=== PATIENT | male | born 1945 | race Caucasian/White ===

== ENCOUNTER 2019-08-23 00:01 | Emergency (ER) | payer OTHER, BC ==
[~2019-08-23] VITALS: Ht 177.8 cm; Wt 73.5 kg
[2019-08-23 00:15] VITALS: BP 129/60
--- NOTE | 2019-08-23 00:18 | NUR ---
TO LOBBY A/W BED AMBULATORY
[2019-08-23 00:38] LABS: BASOPHILS % (AUTO) 0.5 % (0.0-2.0); EOSINOPHILS # (AUTO) 0.1 K/uL (0-0.4); EOSINOPHILS % (AUTO) 1.1 % (0.0-4.0); HEMATOCRIT 40.9 % (36-52); HEMOGLOBIN 13.8 g/dL (12.0-18.0); LYMPHOCYTES # (AUTO) 0.7 K/uL (2.0-11.5); MEAN CORPUSCULAR HEMOGLOBIN 31 pg (27-31); MEAN CORPUSCULAR HGB CONC 34 g/dL (33-37); MONOCYTES # (AUTO) 0.6 K/uL (0.8-1.0); MONOCYTES % (AUTO) 7.4 % (1.7-9.3); NEUTROPHILS # (AUTO) 6.2 K/uL (1.8-7.7); NEUTROPHILS % (AUTO) 82.1 % (42.2-75.2); PLATELET COUNT (AUTO) 204 K/uL (140-450); RED BLOOD CELL COUNT(AUTO) 4.45 MIL/uL (4.20-6.10); RED CELL DISTRIBUTION WIDTH 13.7 % (11.6-13.7); WHITE BLOOD COUNT (AUTO) 7.5 K/uL (4.8-10.8)
--- NOTE | 2019-08-23 00:41 | NUR ---
PT TAKEN TO RAD FROM LOBBY
[2019-08-23 00:49] LABS: ANION GAP 14.6 (8-16); CARBON DIOXIDE 25.7 mmol/L (21-32); CHLORIDE 103 mmol/L (98-107); CREATININE 1.6 mg/dL (0.7-1.3); GLUCOSE 103 mg/dL (74-106); POTASSIUM 4.3 mmol/L (3.5-5.1); SODIUM SERUM 139 mmol/L (136-145); UREA NITROGEN, BLOOD 18 mg/dL (7-18)
[2019-08-23 00:51] LABS: LYMPHOCYTES % (AUTO) 8.9 % (20.5-51.1)
[2019-08-23 00:56] LABS: ALBUMIN 3.5 g/dL (3.4-5.0); ASPARTATE AMINOTRANSFERASE 18 U/L (15-37); TOTAL BILIRUBIN 1.2 mg/dL (0.0-1.0)
--- NOTE | 2019-08-23 01:22 | NUR ---
PT AMBULATED TO BED 4 WITH SPOUSE
--- NOTE | 2019-08-23 01:45 | NUR ---
74 YEAR OLD MALE COMPLAINS OF COUGH AND SOME TROUBLE BREATHING. BREATHING EVEN AND UNLABORED, WHEEZING ON LEFT LOBE. RR 18, SPO2 95%. PATIENT STATES HE HAS HAD SOME FATIGUE LATELY. PATIENT ALSO COMPLAINS OF RECTAL BLEEDING AND HIS LAST POOP WAS 2 DAYS AGO. PATIENT AOX4, SKIN WARM AND DRY. PATIENT DENIES CHEST PAIN. BED IN LOWEST POSITION, LOCKED, BED RAIL UPX1. PMH - DENIES ALLERGIES - NKA
[2019-08-23] MEDS ORDERED: ALBUTEROL SULFATE/IPRATROPIU 3 ML SOL IH ONE (01:50)
[2019-08-23 02:31] VITALS: BP 129/60
--- NOTE | 2019-08-23 02:32 | NUR ---
Patient discharged with v/s stable. Written and verbal after care instructions given and explained. Patient alert, oriented and verbalized understanding of instructions. Ambulatory with steady gait. All questions addressed prior to discharge. ID band removed. Patient advised to follow up with PMD. Rx of PROMETHAZINE, ALBUTEROL, AZITHROMYCIN given. Patient educated on indication of medication including possible reaction and side effects. Opportunity to ask questions provided and answered.
== END 2019-08-23 02:32 | disposition home or self-care (01) ==
LOC: MED 00:01
DX: J40 Bronchitis, not specified as acute or chronic (principal); N18.9 Chronic kidney disease, unspecified; R07.89 Other chest pain; R53.83 Other fatigue; M79.10 Myalgia, unspecified site; K59.00 Constipation, unspecified
CPT/HCPCS: 36415; 71045; 80053; 83880; 84484; 85025; 87804; 94640; 99284; J7620

== ENCOUNTER 2019-08-27 16:43 | Inpatient (IN) | payer OTHER, BC ==
[~2019-08-27] VITALS: Ht 177.8 cm; Wt 71.7 kg
--- NOTE | 2019-08-27 16:50 | NUR ---
PATIENT AMBULATED WITH STEADY GAIT TO BED 9.
[2019-08-27 16:53] VITALS: BP 128/71
[2019-08-27] MEDS ORDERED: NACL 0.9% 500 ML IV SCH (16:57)
--- NOTE | 2019-08-27 17:15 | NUR ---
PT TAKEN TO CT
--- NOTE | 2019-08-27 17:25 | NUR ---
74 Y/O MALE PRESENTS WITH EPIGASTRIC DISCOMFORT X1 DAY. PT FEELS PRESSURE IN EPIGASTRIC AREA CAUSING SOB. RESP EVEN AND UNLABORED. EXP WHEEZING HERD IN BILATERAL LUNG. BOWEL SOUNDS NORMOACTIVE. ABD SOFT/ NONTENDER. PT DENIES ANY CHEST PAIN. AAOX3. PT CAME TO ER EARLIER IN THE WEEK W A DX OF BRONCHITIS, HAS BEEN TAKING PROMETHAZINE. PT DENIES ANY BACK PAIN. PT DENIES ANY N/V/D, FEVER, CHILLS. NO PMH NKA
[2019-08-27 17:28] LABS: BASOPHILS % (AUTO) 0.2 % (0.0-2.0); EOSINOPHILS # (AUTO) 0.1 K/uL (0-0.4); EOSINOPHILS % (AUTO) 1.2 % (0.0-4.0); HEMATOCRIT 38.3 % (36-52); HEMOGLOBIN 12.9 g/dL (12.0-18.0); LYMPHOCYTES # (AUTO) 0.5 K/uL (2.0-11.5); LYMPHOCYTES % (AUTO) 6.6 % (20.5-51.1); MEAN CORPUSCULAR HEMOGLOBIN 31 pg (27-31); MEAN CORPUSCULAR HGB CONC 34 g/dL (33-37); MEAN CORPUSCULAR VOLUME 91.3 fL (80-94); MONOCYTES # (AUTO) 0.7 K/uL (0.8-1.0); MONOCYTES % (AUTO) 8.3 % (1.7-9.3); NEUTROPHILS # (AUTO) 6.7 K/uL (1.8-7.7); NEUTROPHILS % (AUTO) 83.7 % (42.2-75.2); PLATELET COUNT (AUTO) 272 K/uL (140-450); RED CELL DISTRIBUTION WIDTH 13.4 % (11.6-13.7)
[2019-08-27 17:32] LABS: APPEARANCE,URINE CLEAR (CLEAR); BILIRUBIN,URINE 1+ (NEGATIVE); BLOOD, URINE 3+ (NEGATIVE); COLOR,URINE YELLOW (YELLOW); LEUKOCYTE ESTERASE ,URINE NEGATIVE (NEGATIVE); NITRITE, URINE NEGATIVE (NEGATIVE); UGLUCOSE NEGATIVE (NEGATIVE)
[2019-08-27 17:45] LABS: PROTHROMBIN TIME 10.7 secs (10.8-13.4)
[2019-08-27 17:48] LABS: WBC,URINE 0-5 /HPF (0-5)
[2019-08-27 17:56] LABS: ALBUMIN 2.6 g/dL (3.4-5.0); ANION GAP 12.6 (8-16); ASPARTATE AMINOTRANSFERASE 30 U/L (15-37); CARBON DIOXIDE 26.8 mmol/L (21-32); CHLORIDE 98 mmol/L (98-107); CREATININE 1.6 mg/dL (0.6-1.3); GLUCOSE 165 mg/dL (74-106); POTASSIUM 3.4 mmol/L (3.5-5.1); SODIUM SERUM 134 mmol/L (136-145); TOTAL BILIRUBIN 0.7 mg/dL (0.0-1.0); UREA NITROGEN, BLOOD 14 mg/dL (7-18)
[2019-08-27] MEDS ORDERED: PIPERACILLIN/TAZOBACTAM 3.375 GM in DEXTROSE 5% 50 ML IV ONE (18:15)
[2019-08-27] MEDS ORDERED: PIPERACILLIN/TAZOBACTAM 3.375 GM VIAL IV ONE (18:25)
--- NOTE | 2019-08-27 19:00 | NUR ---
SP02 FLUCTUATING PT IS SLEEPING IN BED. RESP EVEN AND UNLABORED. PT IS EASILY AROUSABLE. ALL NEEDS MET AT THIS TIME
[2019-08-27] MEDS ORDERED: HYDROcodone/APAP 5/325 MG 1 TAB TAB PO PRN (19:15)
[2019-08-27] MEDS ORDERED: ACETAMINOPHEN 325 MG TAB PO PRN (19:15)
[2019-08-27] MEDS ORDERED: ONDANSETRON 4 MG/2 ML VIAL IM/IVP PRN (19:15)
[2019-08-27] MEDS ORDERED: ALBUTEROL SULFATE/IPRATROPIU 3 ML SOL IH PRN (19:15)
[2019-08-27] MEDS ORDERED: DOCUSATE SODIUM 100 MG GELCAP PO PRN (19:15)
[2019-08-27] MEDS ORDERED: AZIT250T3 PO (19:48)
[2019-08-27] MEDS ORDERED: PHE6.25L PO (19:48)
--- NOTE | 2019-08-27 19:55 | NUR ---
RECEIVED FROM ER PER SPENCER AWAKE AND ALERT. ABLE TO VERBALIZE WELL IN NAMIBIAN WITH A LITTLE MONGOLIAN. AND DAUGHTER WITH PT. DAUGHTER /BRANDEN /SPEAKS GOOD MONGOLIAN AND KNOWS FATHER WELL. IVF SITE TO RAC #22 . GOOD BLOOD RETURN NOTED. NO COMPLAINTS OF ANY DOLOR AT THIS TIME. CARE PLANS FOR THE NIGHT DISCUSSED WITH THEM AND CALL LIGHT WITH IN REACH. ORIENTED TO RESTROOM INSIDE ROOM . SKIN INTACT.
[2019-08-27 20:00] VITALS: BP 131/77
[2019-08-27 20:00] LABS: MAGNESIUM 1.8 mg/dL (1.8-2.4); PHOSPHORUS 2.4 mg/dL (2.5-4.9); THYROID STIMULATING HORMONE 1.79 uIU/mL (0.34-3.74)
[2019-08-27] MEDS ORDERED: AZITHROMYCIN 500 MG in DEXTROSE 5% 250 ML IV SCH (20:00)
[2019-08-27] MEDS ORDERED: POTASSIUM CHLORIDE 10 MEQ TABER PO SCH (20:00)
--- NOTE | 2019-08-27 20:02 | NUR ---
Patient will be admitted to care of [facility]. Admited to TELE. Will go to room 122A. Belongings list completed. Report to CHULA MCGOVERN.
[2019-08-27 20:06] LABS: BARBITURATE, URINE NEG. ng/ml (NEG <=200); BENZODIAZEPINE, URINE NEG. ng/mL (NEG <=200); CANNABINOID, URINE NEG. ng/mL (NEG <=50); COCAINE, URINE NEG. ng/mL (NEG <=300); OPIATE, URINE NEG. ng/mL (NEG <=2000); PHENCYCLIDINE SCREEN,URINE NEG. ng/mL (NEG <=25)
[2019-08-27] MEDS ORDERED: AZITHROMYCIN 500 MG INJ VIAL IV ONE (20:06)
[2019-08-27] MEDS: NACL 0.9% 1,000 ML IV SCH (20:11)
[2019-08-27] MEDS: ATORVASTATIN 20 MG TAB PO SCH (21:33)
[2019-08-27] MEDS: SODIUM PHOS / POTASSIUM PHOS 1 PKT PDR PO SCH (21:34)
[2019-08-27] MEDS: PANTOPRAZOLE 40 MG TABEC PO SCH (21:43)
--- NOTE | 2019-08-27 23:00 | NUR ---
FAMILY LEFT FOR HOM3E. CALL LIGHT WITH IN REACH. ENCOURAGED TO CALL FOR ANY HELP HE MAY NEED. NO SOB. NO DENIES PAIN AT THIS TIME. TELEMETRY MONITORING.
[2019-08-27] MEDS ORDERED: cefTRIAXone 1,000 MG VIAL ONE (23:31)
[2019-08-28] VITALS: BP 128/76
--- NOTE | 2019-08-28 02:10 | NUR ---
PT. NOTED ABLE TO SPEAK IN ANGUILLAN WELL. CALL LIGHT WITH IN REACH. ENCOURAGED TO CALL FOR ANY HELP HE MAY NEED. NO COMPLAINTS DONE AT THIS TIME. WAKES UP EASILY WHEN TOUCHED OR CALLED BY NAME. TELEMETRY MONITORING.
[2019-08-28 04:00] VITALS: BP 132/62
--- NOTE | 2019-08-28 07:11 | NUR ---
SLEEPING STILL. WAKES UP EASILY WHEN TOUCHED OR CALLED BY NAME. TELEMETRY MONITORING. NO COMPLAINTS OF ANY PAIN OR SOB THIS SHIFT.
[2019-08-28 07:12] LABS: BASOPHILS % (AUTO) 0.2 % (0.0-2.0); EOSINOPHILS # (AUTO) 0.2 K/uL (0-0.4); HEMATOCRIT 35.2 % (36-52); HEMOGLOBIN 11.9 g/dL (12.0-18.0); LYMPHOCYTES # (AUTO) 0.8 K/uL (2.0-11.5); LYMPHOCYTES % (AUTO) 9.7 % (20.5-51.1); MEAN CORPUSCULAR HEMOGLOBIN 31 pg (27-31); MEAN CORPUSCULAR HGB CONC 34 g/dL (33-37); MEAN CORPUSCULAR VOLUME 91.1 fL (80-94); MONOCYTES # (AUTO) 0.9 K/uL (0.8-1.0); MONOCYTES % (AUTO) 10.5 % (1.7-9.3); NEUTROPHILS # (AUTO) 6.5 K/uL (1.8-7.7); NEUTROPHILS % (AUTO) 77.6 % (42.2-75.2); PLATELET COUNT (AUTO) 258 K/uL (140-450); RED BLOOD CELL COUNT(AUTO) 3.86 MIL/uL (4.20-6.10); RED CELL DISTRIBUTION WIDTH 13.8 % (11.6-13.7); WHITE BLOOD COUNT (AUTO) 8.4 K/uL (4.8-10.8)
--- NOTE | 2019-08-28 07:34 | NUR ---
RECEIVED FROM SYSTEMS INTEGRATION ADVISOR RN FOR CONTINUITY OF CARE. PT IS AAOX4, ABLE TO VERBALIZE WELL IN HEBREW WITH A LITTLE SWEDISH SPOKEN. IVF SITE TO RAC #22 . GOOD BLOOD RETURN NOTED. NO COMPLAINTS OF ANY PAIN AT THIS TIME. SKIN IS INTACT. PT AMBULATORY WITH STANDBY ASSISTANCE. CARE PLAN DISCUSSED WITH PT AND PT VERBALIZED UNDERSTANDING. CALL LIGHT WITH IN REACH, BED IN LOW POSITION. WILL MONITOR PT CLOSELY.
[2019-08-28 07:47] LABS: MAGNESIUM 1.7 mg/dL (1.8-2.4)
[2019-08-28 07:48] LABS: ANION GAP 11.3 (8-16); CARBON DIOXIDE 26.8 mmol/L (21-32); CHLORIDE 103 mmol/L (98-107); GLUCOSE 103 mg/dL (74-106); POTASSIUM 4.1 mmol/L (3.5-5.1); SODIUM SERUM 137 mmol/L (136-145)
[2019-08-28 07:49] LABS: CREATININE 1.3 mg/dL (0.6-1.3); UREA NITROGEN, BLOOD 11 mg/dL (7-18)
[2019-08-28 08:00] VITALS: BP 118/48
[2019-08-28] MEDS: SODIUM PHOS / POTASSIUM PHOS 1 PKT PDR PO SCH ×2 (09:01→20:38)
[2019-08-28] MEDS: PANTOPRAZOLE 40 MG TABEC PO SCH (09:04)
[2019-08-28] MEDS: ASPIRIN 81 MG TAB.CHEW PO SCH (09:04)
[2019-08-28] MEDS: LACTOBACILLUS RHAMNOSUS GG 1 EACH CAP PO SCH (09:04)
[2019-08-28] MEDS: AZITHROMYCIN 250 MG TAB PO SCH (09:04)
--- NOTE | 2019-08-28 09:28 | NUR ---
ADMINISTERED MORNING MEDS TO PT. PT TOLERATED WELL. ALL NEEDS MET. WILL CONTINUE TO ROUND FREQUENTLY ON PT.
--- NOTE | 2019-08-28 10:32 | NUR ---
PATIENT HAS BEEN SCREENED AND CATEGORIZED MODERATE NUTRITION RISK. PATIENT WILL BE SEEN WITHIN 3-5 DAYS OF ADMISSION. 08/30/19 - 09/01/19 OLGA DUMAS MBA, RD
--- NOTE | 2019-08-28 11:42 | NUR ---
PT RESTING IN BED WITH AT BEDSIDE. ALL NEEDS MET. WILL CONTINUE TO ROUND FREQUENTLY ON PT. BED IN LOW POSITION, CALL LIGHT WITHIN REACH.
[2019-08-28 12:00] VITALS: BP 128/56
[2019-08-28] MEDS: NACL 0.9% 1,000 ML IV SCH (12:24)
--- NOTE | 2019-08-28 13:41 | NUR ---
PT RESTING IN BED. ALL NEEDS MET.
--- NOTE | 2019-08-28 15:32 | NUR ---
PT ASLEEP. ALL NEEDS MET. WILL CONTINUE TO ROUND FREQUENTLY ON PT.
[2019-08-28] MEDS: ALBUTEROL SULFATE/IPRATROPIU 3 ML SOL IH SCH ×3 (15:47→23:00)
[2019-08-28 16:00] VITALS: BP 132/79
[2019-08-28] MEDS: MAG SULF 2000 MG/WATER PREMIX 100 ML IV SCH ×2 (16:54→20:24)
--- NOTE | 2019-08-28 17:44 | NUR ---
PT RESTING IN BED WITH FAMILY AT BEDSIDE. ALL NEEDS MET.
--- NOTE | 2019-08-28 19:30 | NUR ---
RECEIVED PT AWAKE, ALERT, AND ORIENTED, X 4, WITH FAMILY MEMBER ON THE BED SIDE, [place] SPEAKING ,RESP EVEN AND EASY 93% IN RA,VITAL SIGN WNL, DENIES ANY PAIN AT THIS TIME, IV LINE ON RAC INFILTRATED, PT AMBULATORY WITH STAND BY ASSIST,PLAN OF CARE DISCUSSED WITH THE PT VERBALIZED UNDERSTANDING,CALL LIGHT ON REACH, CONTINUE TO MONITOR PT.
[2019-08-28 20:00] VITALS: BP 125/64
--- NOTE | 2019-08-28 20:11 | NUR ---
ENDORSED PT TO PRESS WRITER FOR CONTINUITY OF CARE. PT IN STABLE CONDITION AT THIS TIME.
[2019-08-28] MEDS: ATORVASTATIN 20 MG TAB PO SCH (20:36)
[2019-08-29] VITALS: BP 118/55
[2019-08-29] MEDS: ALBUTEROL SULFATE/IPRATROPIU 3 ML SOL IH SCH ×6 (03:00→22:51)
[2019-08-29 04:00] VITALS: BP 126/72
--- NOTE | 2019-08-29 04:23 | NUR ---
PT SLEEPING ,VITAL SIGN WNL,NO SIGN OF DISCOMFORT NOTED,CONTINUE TO MONITOR.
[2019-08-29] MEDS: NACL 0.9% 1,000 ML IV SCH ×2 (06:32→21:11)
--- NOTE | 2019-08-29 06:38 | NUR ---
PT SLEPT 6-8 HRS, NO SIGN OF DISCOMFORT NOTED ,IV INFUSING , ENDORSE TO DAY NURSE
[2019-08-29 07:03] LABS: BASOPHILS % (AUTO) 0.6 % (0.0-2.0); EOSINOPHILS # (AUTO) 0.3 K/uL (0-0.4); EOSINOPHILS % (AUTO) 3.9 % (0.0-4.0); HEMATOCRIT 34.9 % (36-52); HEMOGLOBIN 11.8 g/dL (12.0-18.0); LYMPHOCYTES # (AUTO) 0.9 K/uL (2.0-11.5); LYMPHOCYTES % (AUTO) 12.7 % (20.5-51.1); MEAN CORPUSCULAR HEMOGLOBIN 31 pg (27-31); MEAN CORPUSCULAR HGB CONC 34 g/dL (33-37); MONOCYTES # (AUTO) 0.6 K/uL (0.8-1.0); MONOCYTES % (AUTO) 8.3 % (1.7-9.3); NEUTROPHILS # (AUTO) 5.1 K/uL (1.8-7.7); NEUTROPHILS % (AUTO) 74.5 % (42.2-75.2); PLATELET COUNT (AUTO) 293 K/uL (140-450); RED BLOOD CELL COUNT(AUTO) 3.83 MIL/uL (4.20-6.10); RED CELL DISTRIBUTION WIDTH 13.5 % (11.6-13.7); WHITE BLOOD COUNT (AUTO) 6.8 K/uL (4.8-10.8)
[2019-08-29 07:09] LABS: ANION GAP 10.9 (8-16); CHLORIDE 102 mmol/L (98-107); CREATININE 1.2 mg/dL (0.6-1.3); GLUCOSE 95 mg/dL (74-106); POTASSIUM 3.9 mmol/L (3.5-5.1); SODIUM SERUM 136 mmol/L (136-145); UREA NITROGEN, BLOOD 11 mg/dL (7-18)
--- NOTE | 2019-08-29 07:46 | NUR ---
RECEIVED PT FROM PALLET ASSEMBLER FOR CONTINUITY OF CARE FROM YESTERDAY. PT IN STABLE CONDITION AT THIS TIME. WILL CONTINUE TO ROUND FREQUENTLY ON PT.
[2019-08-29 07:52] LABS: MAGNESIUM 2.3 mg/dL (1.8-2.4); PHOSPHORUS 4.1 mg/dL (2.5-4.9)
[2019-08-29 08:00] VITALS: BP 96/47
--- NOTE | 2019-08-29 09:35 | NUR ---
ADMINISTERED PT MORNING MEDS. PT TOLERATED WELL. ALL OTHER NEEDS MET. WILL CONTINUE TO ROUND FREQUENTLY ON PT. AT BEDSIDE.
[2019-08-29] MEDS: SODIUM PHOS / POTASSIUM PHOS 1 PKT PDR PO SCH ×2 (09:36→20:07)
[2019-08-29] MEDS: LACTOBACILLUS RHAMNOSUS GG 1 EACH CAP PO SCH (09:36)
[2019-08-29] MEDS: AZITHROMYCIN 250 MG TAB PO SCH (09:37)
[2019-08-29] MEDS: PANTOPRAZOLE 40 MG TABEC PO SCH (09:37)
[2019-08-29] MEDS: ASPIRIN 81 MG TAB.CHEW PO SCH (09:37)
--- NOTE | 2019-08-29 11:20 | NUR ---
PT RESTING IN BED. ALL NEEDS MET. WILL CONTINUE TO ROUND FREQUENTLY ON PT.
[2019-08-29 12:00] VITALS: BP 114/57
--- NOTE | 2019-08-29 13:36 | NUR ---
PT ASLEEP. ALL NEEDS MET.
--- NOTE | 2019-08-29 15:33 | NUR ---
PT RESTING IN BED WATCHING TV WITH AND DAUGHTER AT BEDSIDE. ALL NEEDS MET. WILL CONTINUE TO ROUND FREQUENTLY ON PT. BED IN LOW POSITION, CALL LIGHT WITHIN REACH.
[2019-08-29 16:00] VITALS: BP 114/59
--- NOTE | 2019-08-29 17:44 | NUR ---
PT WALKING AROUND UNIT. ALL NEEDS MET. WILL CONTINUE TO ROUND FREQUENTLY ON PT. BED IN LOW POSITION, CALL LIGHT WITHIN REACH.
--- NOTE | 2019-08-29 19:24 | NUR ---
ENDORSED PT TO REPAIRER GENERAL FOR CONTINUITY OF CARE. PT IN STABLE CONDITION AT THIS TIME.
--- NOTE | 2019-08-29 19:24 | NUR ---
RECIEVED PT. AAOX4 , NID , IV SITE INTACT AND PATENT . NO C/O ANY PAIN AT THIS TIME. AT BEDSIDE . POC DISCUSSED AND VERBALIZE UNDERSTANDING - CALL LIGHT WITHIN REACH .WILL CONT. TO MONITOR.
[2019-08-29 20:00] VITALS: BP 121/62
[2019-08-29] MEDS: ATORVASTATIN 20 MG TAB PO SCH (20:07)
--- NOTE | 2019-08-29 22:00 | NUR ---
MADE ROUNDS . NO COMPLAIN MADE AT THIS TIME . CALL LIGHT WITHIN REACH.
[2019-08-30] VITALS: BP 119/60
--- NOTE | 2019-08-30 | NUR ---
MADE ROUNDS . NO S/SXS OF ACUTE DISTRESS NOTED AT THIS TIME . CALL LIGHT WITHIN REACH.
--- NOTE | 2019-08-30 02:00 | NUR ---
SLEEPING - CHEST 5RISE AND FALL EQUALLY - CALL LIGHT WITHIN REACH . WILL CONT. TO MONITOR.
[2019-08-30] MEDS: ALBUTEROL SULFATE/IPRATROPIU 3 ML SOL IH SCH ×6 (03:21→23:46)
[2019-08-30 04:00] VITALS: BP 122/70
[2019-08-30 05:59] LABS: BASOPHILS % (AUTO) 0.2 % (0.0-2.0); EOSINOPHILS # (AUTO) 0.2 K/uL (0-0.4); EOSINOPHILS % (AUTO) 2.6 % (0.0-4.0); HEMATOCRIT 33.2 % (36-52); HEMOGLOBIN 11.2 g/dL (12.0-18.0); LYMPHOCYTES # (AUTO) 0.8 K/uL (2.0-11.5); LYMPHOCYTES % (AUTO) 11.6 % (20.5-51.1); MEAN CORPUSCULAR HEMOGLOBIN 31 pg (27-31); MEAN CORPUSCULAR HGB CONC 34 g/dL (33-37); MEAN CORPUSCULAR VOLUME 91.3 fL (80-94); MONOCYTES # (AUTO) 0.6 K/uL (0.8-1.0); MONOCYTES % (AUTO) 8.4 % (1.7-9.3); NEUTROPHILS # (AUTO) 5.3 K/uL (1.8-7.7); NEUTROPHILS % (AUTO) 77.2 % (42.2-75.2); PLATELET COUNT (AUTO) 314 K/uL (140-450); RED BLOOD CELL COUNT(AUTO) 3.63 MIL/uL (4.20-6.10); RED CELL DISTRIBUTION WIDTH 13.4 % (11.6-13.7); WHITE BLOOD COUNT (AUTO) 6.9 K/uL (4.8-10.8)
[2019-08-30 06:07] LABS: ANION GAP 12.4 (8-16); CARBON DIOXIDE 27.4 mmol/L (21-32); CHLORIDE 102 mmol/L (98-107); CREATININE 1.3 mg/dL (0.6-1.3); GLUCOSE 102 mg/dL (74-106); POTASSIUM 3.8 mmol/L (3.5-5.1); SODIUM SERUM 138 mmol/L (136-145); UREA NITROGEN, BLOOD 12 mg/dL (7-18)
[2019-08-30 06:10] LABS: MAGNESIUM 1.8 mg/dL (1.8-2.4)
--- NOTE | 2019-08-30 07:15 | NUR ---
RECEIVED BEDSIDE REPORT FROM CRYSTAL MOUNTER NURSE. PT IS AWAKE AND ALERT, ON HIS PHONE, NO S/S OF DISTRESS, ON ROOM AIR. SKIN INTACT. IV SITE L HAND 22 G INFUSING NS 60 ML/HR. FALL PRECAUTIONS IN PLACE. CALL LIGHT IS WITHIN REACH. WILL CONTINUE TO MONITOR.
[2019-08-30 08:00] VITALS: BP 136/69
--- NOTE | 2019-08-30 09:39 | NUR ---
PT AMBULATING IN THE HALLWAY WITH A FAMILY MEMBER. GAIT STEADY
[2019-08-30] MEDS: SODIUM PHOS / POTASSIUM PHOS 1 PKT PDR PO SCH ×2 (09:56→21:44)
[2019-08-30] MEDS: LACTOBACILLUS RHAMNOSUS GG 1 EACH CAP PO SCH (09:58)
[2019-08-30] MEDS: METOPROLOL SUCCINATE 50 MG TABER PO SCH (09:59)
[2019-08-30] MEDS: PANTOPRAZOLE 40 MG TABEC PO SCH (09:59)
[2019-08-30] MEDS: ASPIRIN 81 MG TAB.CHEW PO SCH (09:59)
[2019-08-30] MEDS: AZITHROMYCIN 250 MG TAB PO SCH (09:59)
[2019-08-30] MEDS ORDERED: CRUSHER, PILL MC ONE (10:02)
--- NOTE | 2019-08-30 10:16 | NUR ---
AM MEDS ADMINISTERED, PT TOLERATED WELL. PT JUST WALKED WITH PHYSICAL THERAPIST IN THE HALLWAY.
--- NOTE | 2019-08-30 10:56 | NUR ---
PT IS SATTING 93% ON ROOM AIR AFTER AMBULATING.
--- NOTE | 2019-08-30 11:01 | NUR ---
PT IS GETTING A BREATHING TX AT THIS TIME.
--- NOTE | 2019-08-30 12:08 | NUR ---
ELDER assessment/discharge plan High Risk DC Screen Yes Name: Elina Traylor Home Relationship: Pre-Admission Living Arrangements: Lives with Other Other: Elina Traylor Prior ADL Independent Current Home Health Name/Tel: N/A Current DME/02 Name/Tel: N/A Current Hospice Name/Tel: N/A Current Dialysis Name/Tel: N/A Healthcare Decision Maker: Patient Advance Directive No Information Taught: Advance Directive Community Resources Person Taught: Patient Spouse Teaching Tools: Community Resources Computer Generated Print Verbal Factors Affecting Learning: None Participation Level: Active Evaluation: Gestures Understanding Verbalizes Understanding Educator: ELDER Ruano Discipline: Case Mgt/Social Svcs Tentative Discharge Plan Summary: Patient is a 74 year old male admitted for pneumonia. I met with patient and patient's Elina Traylor at bedside. Patient alert and oriented x4. Patient and Elina speak Hebrew. Patient lives at home with Elina and plans to return home upon discharge. Patient's pcp is Shivani Tobias at [facility] ([place], [place]) for medical care and does not have any difficulty filling his prescriptions at pharmacy. He denied hx of mental health and alcohol/substance abuse. I provided them with education on [employer] for community resources. They do not have any questions/concerns at this time. Airframe Design Engineer and/or Limo Driver will follow up as needed. Signature: ELDER Ruano Date: Aug 30, 2019
--- NOTE | 2019-08-30 13:00 | NUR ---
PT'S FAMILY AT BEDSIDE WANTING TO TALK TO DR LOBO. DR LOBO AWARE AND WILL GO SPEAK WITH FAMILY.
[2019-08-30] MEDS: NACL 0.9% 1,000 ML IV SCH (14:08)
--- NOTE | 2019-08-30 15:25 | NUR ---
PT GETTING A BREATHING TX
[2019-08-30 16:00] VITALS: BP 140/78
--- NOTE | 2019-08-30 16:21 | NUR ---
DC PLANNIN YRS OLD MALE PATIENT WAS ADMITTED FROM HOME WITH A DX OF PNEUMONIA. PT HAS A HX OF GERD ,BILATERAL TAYLOR CYST. CXRAY SHOWED LEFT ADMINISTERED ROCEPHIN AND ZITHROMAX IV. BLOOD, URINE AND SPUTUM PENDING.DC PLAN TO GO HOME WHEN STABLE.
--- NOTE | 2019-08-30 19:20 | NUR ---
PT ENDORSED TO WORM FARMER NURSE IN STABLE CONDITION.
--- NOTE | 2019-08-30 19:25 | NUR ---
RECEIVED PT FROM DAY SHIFT NURSE PT ARGENTINE SPEAKER AAOX4 AMBULATORY IV ON LEFT FA INFUSING WELL NOT DISTRESS NOTED, RELATIVE AT BED SIDE , PT COMPLALINTOF DISURIA DR SEGUNDO WILL BE NOTIFY
[2019-08-30] MEDS ORDERED: PHENAZOPYRIDINE 100 MG TAB PO SCH (20:00)
[2019-08-30] MEDS: ATORVASTATIN 20 MG TAB PO SCH (21:44)
--- NOTE | 2019-08-30 22:00 | NUR ---
PT RESTING ON BED NOT DISTRESS NOTE
--- NOTE | 2019-08-30 23:56 | NUR ---
SCHEDULED BREATHING TREATMENT ADMINISTERED. TOLERATED TX WELL WITHOUT ADVERSE SIDE EFFECTS. NO ACUTE RESPIRATORY DISTRESS NOTED AT THIS TIME. WILL CONTINUE TO MONITOR.
[2019-08-31] VITALS: BP 160/75
--- NOTE | 2019-08-31 02:00 | NUR ---
PT SLEEPING WELL AFTER PAIN MEDIC GIVEN
[2019-08-31] MEDS: ALBUTEROL SULFATE/IPRATROPIU 3 ML SOL IH SCH ×3 (03:00→11:15)
--- NOTE | 2019-08-31 04:00 | NUR ---
SPONGE BATH GIVEN LINEN CHANGED NOT DISTRESS NOTED
[2019-08-31 06:09] LABS: BASOPHILS % (AUTO) 0.2 % (0.0-2.0); EOSINOPHILS # (AUTO) 0.1 K/uL (0-0.4); EOSINOPHILS % (AUTO) 1.1 % (0.0-4.0); HEMATOCRIT 35.6 % (36-52); HEMOGLOBIN 11.9 g/dL (12.0-18.0); LYMPHOCYTES # (AUTO) 0.8 K/uL (2.0-11.5); LYMPHOCYTES % (AUTO) 8.7 % (20.5-51.1); MEAN CORPUSCULAR HEMOGLOBIN 30 pg (27-31); MEAN CORPUSCULAR HGB CONC 33 g/dL (33-37); MEAN CORPUSCULAR VOLUME 91.1 fL (80-94); MONOCYTES # (AUTO) 0.6 K/uL (0.8-1.0); MONOCYTES % (AUTO) 6.7 % (1.7-9.3); NEUTROPHILS # (AUTO) 7.2 K/uL (1.8-7.7); NEUTROPHILS % (AUTO) 83.3 % (42.2-75.2); PLATELET COUNT (AUTO) 396 K/uL (140-450); RED BLOOD CELL COUNT(AUTO) 3.91 MIL/uL (4.20-6.10); RED CELL DISTRIBUTION WIDTH 13.6 % (11.6-13.7); WHITE BLOOD COUNT (AUTO) 8.6 K/uL (4.8-10.8)
[2019-08-31 06:14] LABS: ANION GAP 14.1 (8-16); CHLORIDE 99 mmol/L (98-107); CREATININE 1.3 mg/dL (0.6-1.3); GLUCOSE 106 mg/dL (74-106); POTASSIUM 4.1 mmol/L (3.5-5.1); SODIUM SERUM 136 mmol/L (136-145); UREA NITROGEN, BLOOD 13 mg/dL (7-18)
[2019-08-31 06:20] LABS: MAGNESIUM 1.7 mg/dL (1.8-2.4); PHOSPHORUS 4.1 mg/dL (2.5-4.9)
[2019-08-31] MEDS: NACL 0.9% 1,000 ML IV SCH (06:31)
--- NOTE | 2019-08-31 06:36 | NUR ---
PT DEA ENDORSED TODAY SHIFT NURSE FOR CONTINUE OF CARE
--- NOTE | 2019-08-31 07:20 | NUR ---
RECEIVED BEDSIDE REPORT FROM UNIVERSITY TUTOR NURSE FOR CONTINUITY OF CARE. PT AWAKE AND RESTING ON BED AT THIS TIME. PT SPEAKS [place] AND UNDERSTAND MINIMAL SPANISH. RESPIRATION EVEN AND UNLABORED ON RA. DENIED PAIN, SOB, AND DIZZINESS. NO SIGNS OF DISTRESS NOTED. LFA 24G, CLEAN AND INTACT, INFUSING NS AT 60 ML/HR AT THIS TIME. SKIN CLEAN AND DRY. PT IS CONTINENT AND ABLE TO USE THE URANAL BY BEDSIDE . SAFETY MEASURES IN PLACE. BED IN LOW POSITION AND CALL LIGHT WITHIN REACH. INSTRUCTED PT TO USE THE CALL LIGHT FOR ANY ASSISTANCE AND PT WAS AWARE.
[2019-08-31 08:00] VITALS: BP 155/77
[2019-08-31] MEDS: SODIUM PHOS / POTASSIUM PHOS 1 PKT PDR PO SCH (08:47)
[2019-08-31] MEDS: ASPIRIN 81 MG TAB.CHEW PO SCH (08:48)
[2019-08-31] MEDS: AZITHROMYCIN 250 MG TAB PO SCH (08:48)
[2019-08-31] MEDS: METOPROLOL SUCCINATE 50 MG TABER PO SCH (08:49)
[2019-08-31] MEDS: PHENAZOPYRIDINE 100 MG TAB PO SCH ×2 (08:49→13:38)
[2019-08-31] MEDS: PANTOPRAZOLE 40 MG TABEC PO SCH (08:49)
[2019-08-31] MEDS: LACTOBACILLUS RHAMNOSUS GG 1 EACH CAP PO SCH (08:49)
--- NOTE | 2019-08-31 08:50 | NUR ---
DOCTOR OF PODIATRY REPORTS ABNORMAL BP, REASSESSED BP AND RECEIVED 155/77 PULSE 87. ADMINISTERED SCHEDULED AM MEDS, MEDS EDUCATION PROVIDED TO PT AND PT VERBALIZED OK. PT TOLERATED MEDS WELL. COLLECTED URINE SAMPLE VIA DIRECT VOID AND DOCTOR OF PODIATRY SEND TO LAB. PT AWAKE AND RESTING ON BED AT THIS TIME. DENIED PAIN, SOB, AND DIZZINESS. NO SIGNS OF DISTRESS NOTED. SAFETY MEASURES IN PLACE. BED IN LOW POSITION AND CALL LIGHT WITHIN REACH. BED ALARM ACTIVATED. INSTRUCTED PT TO USE THE CALL LIGHT FOR ANY ASSISTANCE AND PT WAS AWARE.
[2019-08-31 09:12] LABS: APPEARANCE,URINE CLEAR (CLEAR); BILIRUBIN,URINE NEGATIVE (NEGATIVE); BLOOD, URINE 1+ (NEGATIVE); COLOR,URINE YELLOW (YELLOW); LEUKOCYTE ESTERASE ,URINE NEGATIVE (NEGATIVE); NITRITE, URINE POSITIVE (NEGATIVE); PH,URINE 6.5 (5.0-9.0); UGLUCOSE NEGATIVE (NEGATIVE)
--- NOTE | 2019-08-31 09:20 | NUR ---
PT AWAKE AND WATCHING TV ON BED. DENIED PAIN, SOB, AND DIZZINESS. NO SIGNS OF DISTRESS NOTED. SAFETY MEASURES IN PLACE.
[2019-08-31 09:33] LABS: RBC,URINE 0-5 /HPF (0-5)
--- NOTE | 2019-08-31 10:39 | NUR ---
PA WAKE AND TALKING TO VISITOR AT BEDSIDE. NO SIGNS OF DISTRESS NOTED. SAFETY MEASURES IN PLACE.
--- NOTE | 2019-08-31 11:57 | NUR ---
PT AWAKE AND RESTING ON BED AT THIS TIME. DENIED PAIN, SOB, AND DIZZINESS. NO SIGNS OF DISTRESS NOTED. SAFETY MEASURES IN PLACE. BED IN LOW POSITION AND CALL LIGHT WITHIN REACH. INSTRUCTED PT TO USE THE CALL LIGHT FOR ANY ASSISTANCE AND PT WAS AWARE.
[2019-08-31] MEDS ORDERED: PHEN-1749 PO (13:37)
[2019-08-31] MEDS ORDERED: CEPH500C16 PO (13:37)
[2019-08-31] MEDS ORDERED: AZIT500T8 PO (13:37)
[2019-08-31] MEDS ORDERED: PHE6.25L PO (13:37)
--- NOTE | 2019-08-31 13:38 | NUR ---
ADMINISTERED SCHEDULE MED PER MD ORDER, MED ED PROVIDED TO PT AND PT SAID OK. INFORMED PT THAT HE WILL BE DC HOME TODAY AND PT SAID, "OK, 3 O'CLOCK." WILL PREPARE DC DOCUMENT. PT AWAKE AND RESTING ON BED. NO SIGNS OF DISTRESS NOTED. SAFETY MEASURES IN PLACE.
[2019-08-31] MEDS ORDERED: TAMS0.4C96 PO (13:45)
--- NOTE | 2019-08-31 13:50 | NUR ---
FOLLOW UP DONE WITH FROILAN JULES FOR IMMUNIZATION STATUS.
--- NOTE | 2019-08-31 15:19 | NUR ---
DISCHARGE INSTRUCTION PROVIDED TO PT AND BY BEDSIDE. EDUCATED PT AND ON FOLLOW UP WITH MD, SEEK MEDICAL HELP IN CASE OF MEDICAL EMERGENCY, DISEASE MANAGEMENT, MEDICATIONS REGIMEN AND SIDE EFFECT. ANSWERED ALL PT'S QUESTIONS AND BOTH PT AND VERBALIZED UNDERSTANDING. PROVIDED MEDICATION PRESCRIPTIONS AND ALL IMAGING REPORTS TO PT. PT REFUSED FLU AND PNA VACCINES, EDUCATION PROVIDED AND PT INSISTED NOT WANT THEM. REMOVED ALL ARM BANDS AND IV. IV CANNULA INTACT AND NO BLEEDING ON IV SITE. PT CHANGED INTO HIS OWN CLOTHES. PT CHECKED ALL THE CABINETS AND TOOK ALL HIS BELONGINGS HOME. ADVERTISEMENT DISTRIBUTOR ESCORTED PT TO FRONT LOBBY WITH WHEELCHAIR. PT IS GOING TO BE DC HOME AT THIS TIME ACCOMPANY BY . PT IS IN STABLE CONDITION.
== END 2019-08-31 15:19 | disposition home or self-care (01) | DRG 177 ==
LOC: MED 16:43 → MTU 19:11
PROVIDERS: ADMIT General Practice; ATTEND General Practice
DX: J69.0 Pneumonitis due to inhalation of food and vomit (principal); N17.0 Acute kidney failure with tubular necrosis; E43 Unspecified severe protein-calorie malnutrition; E87.1 Hypo-osmolality and hyponatremia; N39.0 Urinary tract infection, site not specified; I71.4 Abdominal aortic aneurysm, without rupture; K44.9 Diaphragmatic hernia without obstruction or gangrene; N28.1 Cyst of kidney, acquired; F17.210 Nicotine dependence, cigarettes, uncomplicated; E87.6 Hypokalemia; E83.39 Other disorders of phosphorus metabolism; K21.9 Gastro-esophageal reflux disease without esophagitis; D71 Functional disorders of polymorphonuclear neutrophils; E83.42 Hypomagnesemia; E86.0 Dehydration; E78.2 Mixed hyperlipidemia; Z68.22 Body mass index [BMI] 22.0-22.9, adult
CPT/HCPCS: 36415; 71045; 76770; 80048; 80053; 80305; 81001; 82150; 83036; 83605; 83615; 83690; 83735; 83880; 84100; 84134; 84443; 84484; 85025; 85610; 85730; 87040; 87070; 87081; 87086; 87804; 93005; 94640; 96361; 96365; 99285; J0456; J0696; J1644; J2543; J3475; J7030; J7060; J7620; Q0092

== ENCOUNTER 2019-09-02 16:16 | Emergency (ER) | payer OTHER, BC ==
[~2019-09-02] VITALS: Ht 177.8 cm; Wt 73.5 kg
[~2019-09-02 16:16] MED LIST: AZIT500T8 PO; CEPH500C16 PO; PHE6.25L PO; PHEN-1749 PO; TAMS0.4C96 PO
[2019-09-02 16:43] VITALS: BP 125/71
--- NOTE | 2019-09-02 16:50 | NUR ---
PT AMB TO BED 11.
--- NOTE | 2019-09-02 17:01 | NUR ---
74 Y/O MALE C/O SUPRAPUBIC PAIN, URINARY RETENTION, PAINFUL URINATION, AND LOW BACK PAIN X 4 DAYS. PT PRESENTS WITH MILDLY DISTENDED ABD, HARD TO THE TOUCH. DENIES PAIN ON PALPATION. BOWEL SOUNDS PRESENT X 4 QUAD. RR EVEN AND UNLABORED. PT SITTING UPRIGHT IN BED CALM AND PLEASANT. VSS MEDHX: DENIES ALLERGIES: NKA
--- NOTE | 2019-09-02 17:24 | NUR ---
URINE COLLECTED VIA STRAIGHT CATH. 1400 CC OF ORANGE URINE COLLECTED.
[2019-09-02 17:58] LABS: BASOPHILS % (AUTO) 0.3 % (0.0-2.0); EOSINOPHILS # (AUTO) 0.1 K/uL (0-0.4); EOSINOPHILS % (AUTO) 1.4 % (0.0-4.0); HEMATOCRIT 38.1 % (36-52); HEMOGLOBIN 12.8 g/dL (12.0-18.0); LYMPHOCYTES # (AUTO) 0.6 K/uL (2.0-11.5); LYMPHOCYTES % (AUTO) 5.6 % (20.5-51.1); MEAN CORPUSCULAR HEMOGLOBIN 31 pg (27-31); MEAN CORPUSCULAR HGB CONC 34 g/dL (33-37); MEAN CORPUSCULAR VOLUME 91.9 fL (80-94); MONOCYTES # (AUTO) 0.7 K/uL (0.8-1.0); MONOCYTES % (AUTO) 6.4 % (1.7-9.3); NEUTROPHILS # (AUTO) 9.3 K/uL (1.8-7.7); NEUTROPHILS % (AUTO) 86.3 % (42.2-75.2); PLATELET COUNT (AUTO) 491 K/uL (140-450); RED BLOOD CELL COUNT(AUTO) 4.14 MIL/uL (4.20-6.10); RED CELL DISTRIBUTION WIDTH 13.8 % (11.6-13.7); WHITE BLOOD COUNT (AUTO) 10.8 K/uL (4.8-10.8)
--- NOTE | 2019-09-02 18:12 | NUR ---
STATES HE IS UNABLE TO URINATE AT THIS TIME ON HIS OWN. GIVEN WATER UPON REQUEST TO TRY TO URINATE. WILL CONTINUE TO MONITOR
[2019-09-02 18:16] LABS: ALBUMIN 2.8 g/dL (3.4-5.0); ANION GAP 11.2 (8-16); ASPARTATE AMINOTRANSFERASE 40 U/L (15-37); CARBON DIOXIDE 28.9 mmol/L (21-32); CHLORIDE 102 mmol/L (98-107); GLUCOSE 106 mg/dL (74-106); POTASSIUM 4.1 mmol/L (3.5-5.1); SODIUM SERUM 138 mmol/L (136-145); TOTAL BILIRUBIN 0.5 mg/dL (0.0-1.0); UREA NITROGEN, BLOOD 24 mg/dL (7-18)
[2019-09-02 18:20] LABS: APPEARANCE,URINE CLEAR (CLEAR); BILIRUBIN,URINE 1+ (NEGATIVE); BLOOD, URINE 1+ (NEGATIVE); COLOR,URINE AMBER (YELLOW); LEUKOCYTE ESTERASE ,URINE TRACE (NEGATIVE); NITRITE, URINE POSITIVE (NEGATIVE); UGLUCOSE TRACE (NEGATIVE)
[2019-09-02 18:32] LABS: WBC,URINE 0-5 /HPF (0-5)
[2019-09-02 18:50] VITALS: BP 125/71
== END 2019-09-02 18:51 | disposition home or self-care (01) ==
LOC: MED 16:16
DX: N15.9 Renal tubulo-interstitial disease, unspecified (principal); R33.9 Retention of urine, unspecified; K59.00 Constipation, unspecified; Z79.899 Other long term (current) drug therapy
CPT/HCPCS: 36415; 80053; 81001; 85025; 99283; C1758

== ENCOUNTER 2019-09-03 11:38 | Emergency (ER) | payer BC, OTHER ==
[~2019-09-03] VITALS: Ht 177.8 cm; Wt 73.5 kg
[2019-09-03 11:45] VITALS: BP 132/61
--- NOTE | 2019-09-03 11:58 | NUR ---
Patient ambulated to bed 2 with family. RN evaluating patient at bedside.
--- NOTE | 2019-09-03 12:28 | NUR ---
74 Y/O M C/O UNABLE TO URINATE X 1 DAY. PT STATES HE WAS IN THE ED YESTERDAY FOR URINE RETENTION. PT BLADDER AREA IS TENDER TO TOUCH, MILD DISTENTION. PT POSITIONED FOR COMFORT, SIDE RAIL X1, AT BEDSIDE. ONEIL
--- NOTE | 2019-09-03 12:34 | NUR ---
PT AMBULATED TO RESTROOM W/O DIFFICULTY.
--- NOTE | 2019-09-03 12:41 | NUR ---
PT WAS ABLE TO URINATE 30 ML FOR A UA.
--- NOTE | 2019-09-03 12:50 | NUR ---
BLADDER SCAN PERFORMED AFTER PT URINATED, READ 959 ML
--- NOTE | 2019-09-03 13:05 | NUR ---
16 THOMAS PLACED UNDER STERILE TECHNIQUE, BALLOON FILLED TO 10 CC. CATHETER DRAINING REZA COLORED URINE, 1200 ML. PT TOLERATED WELL.
--- NOTE | 2019-09-03 13:25 | NUR ---
PT RESTING IN BED, SIDE RAIL X1
--- NOTE | 2019-09-03 13:47 | NUR ---
PT RESTING COMFORTABLY, VSS, RESPERATIONS EVEN, EYES CLOSED.
--- NOTE | 2019-09-03 14:11 | NUR ---
EMPTIED 1200 ML OF REZA COLORED CLEAR URINE FROM PT CATHETER BAG WITH [address]
--- NOTE | 2019-09-03 14:12 | NUR ---
DR POSADA AT BEDSIDE EXAMINING PATIENT.
[2019-09-03 14:36] VITALS: BP 135/63
--- NOTE | 2019-09-03 14:36 | NUR ---
DPatient discharged with v/s stable. Written and verbal after care instructions given and explained. Patient verbalized understanding. Ambulatory with steady gait. All questions addressed prior to discharge. Advised to follow up with PMD. PT UNDERSTANDS TO FOLLOW UP WITH PRIMARY CARE DOCTOR FOR URINARY RETENTION. PT VERBALIZED UNDERSTANDING OF HOW TO CARE FOR THE [address]
== END 2019-09-03 14:36 | disposition home or self-care (01) ==
LOC: MED 11:38
DX: R33.9 Retention of urine, unspecified (principal); Z79.899 Other long term (current) drug therapy; Z46.6 Encounter for fitting and adjustment of urinary device
CPT/HCPCS: 51702; 81002; 99284